=== PATIENT | female | born 1980 | race African-American/Black ===

== ENCOUNTER → 2017-01-08 | Outpatient (CLI) | payer OTHER, MEDICAID | LOC: OD 16:54 | PROVIDERS: ATTEND Student in an Organized Health Care Education/Training Program | DX: O20.0 Threatened abortion (principal) | CPT/HCPCS: 36415; 84702; 86900; 86901 ==

== ENCOUNTER 2017-01-09 05:52 | Emergency (ER) | payer OTHER, MEDICAID ==
--- NOTE | 2017-01-09 07:22 | ER Document Report ---
ED GI/ - General Chief Complaint: Vag Bleeding, +preg <12wks Stated Complaint: ABDOMINAL PAIN/VAGINAL BLEEDING Time Seen by Provider: 01/09/17 07:11 Notes: Patient is a 6 week female who presents to the ED complaining of constipation, abdominal distention, generalized abdominal pain and new onset vaginal bleeding. She states over the past 10 days she has been suffering from constipation requiring laxatives such as mag citrate, OTC enemas and colace. She states she has had a BM every 2-3 days while using medications. Her last BM was sunday. Pain is described as cramping abdominal pain with generalized location, no radiation. Admits to nausea and flatus but denies belching, emesis. Patient states she followed up with OBGYN yesterday who evaluated her. LMP: 11/10. Initiated colace, sent b-hcg, urine and performed a TVUS which confirmed IUP. Patient states her vaginal bleeding started this morning, light with one clot the size of a dime. Denies any urinary symptoms, admits to pelvic pressure localized over her pubic symphis. Denies vaginal discharge, itching, pain. PMH: NIDDM, sciatica PSH: denies SH: former smoker, denies etoh or IVDU PCP: Dr. Edwards with [facility] OBGYN: MARK TRAVEL OUTSIDE OF THE [place] IN LAST 30 DAYS: No - Related Data Allergies/Adverse Reactions: No Known Allergies Allergy (Verified 01/09/17 07:57) Home Medications: Current Home Medications Metformin HCl [Metformin HCl] 1 tab PO BID 01/09/17 [History] Vit/Iron Fumarate/FA [ Tablet] 1 each PO DAILY 01/09/17 [ History] Past Medical History - Social History Smoking Status: Former Smoker Family History: Reviewed & Not Pertinent Patient has suicidal ideation: No Patient has homicidal ideation: No - Past Medical History Cardiac Medical History: Reports: Hx Hypertension Renal/ Medical History: Denies: Hx Peritoneal Dialysis - Immunizations Hx Diphtheria, Pertussis, Tetanus Vaccination: Yes Review of Systems - Review of Systems Constitutional: No symptoms reported Cardiovascular: No symptoms reported Respiratory: No symptoms reported Gastrointestinal: See HPI Genitourinary: No symptoms reported Female Genitourinary: See HPI -: Yes All other systems reviewed and negative Physical Exam - Vital signs Vitals: Temp Pulse Resp BP Pulse Ox 98.5 F 89 20 152/93 H 95 01/09/17 05:54 01/09/17 05:54 01/09/17 05:54 01/09/17 05:54 01/09/17 05:54 - Notes Notes: PHYSICAL EXAM GENERAL: Alert, interacts well. HEAD: Normocephalic, atraumatic. EYES: Pupils equal, round, and reactive to light. Extraocular movements intact. ENT: Oral mucosa moist, tongue midline. NECK: Full range of motion. Supple. Trachea midline. LUNGS: Clear to auscultation bilaterally, no wheezes, rales, or rhonchi. No respiratory distress. HEART: Regular rate and rhythm. No murmurs, gallops, or rubs. ABDOMEN: distended and moderately tender. No guarding, rebound, or rigidity.. Bowel sounds present in all 4 quadrants. EXTREMITIES: Moves all 4 extremities spontaneously. No edema, radial and dorsalis pedis pulses 2/4 bilaterally. No cyanosis. NEUROLOGICAL: Alert and oriented x4. Normal speech. PSYCH: Normal affect, normal mood. SKIN: Warm, dry, normal turgor. No rashes or lesions noted. Course - Re-evaluation Re-evalutation: 01/09/17 07:47 Patient is a 36 female who is hemodynamic stable, no acute distress and afebrile. Basic blood work to evaluate beta hCG and follow-up with results from [facility]. Otherwise we will treat patient for constipation.. 01/09/17 20:50 Result showed no evidence of leukocytosis or anemia. Patient is trending down. Review of transvaginal ultrasound done at [facility] did not reveal any evidence of cardiac motion. 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 Smith. She states that she had told the patient yesterday that she is likely undergoing a threatened miscarriage and that she will need to follow-up with her for possible D&C or medication. Reviewing this with the patient, she states she was not aware it was not severe. Discussed with her medications for constipation and plan to follow-up with repeat blood work on with [facility]. Patient agrees with plan. - Vital Signs Vital signs: Temp Pulse Resp BP Pulse Ox 98.5 F 77 17 130/79 H 96 01/09/17 05:54 01/09/17 09:55 01/09/17 09:55 01/09/17 09:55 01/09/17 09:55 - Laboratory Result Diagrams: 01/09/17 07:50 01/09/17 07:30 Laboratory results interpreted by me: 01/09/17 01/09/17 01/09/17 07:30 07:50 07:50 RBC 3.71 L Hgb 10.4 L Hct 31.8 L Monocytes % 15.4 H Absolute Monocytes 1.5 H Sodium 136.7 L Direct Bilirubin 0.6 H AST 48 H Beta HCG, Quant 7710.70 H Urine Protein Urine Blood Urine Urobilinogen Ur Leukocyte Esterase 01/09/17 08:53 RBC Hgb Hct Monocytes % Absolute Monocytes Sodium Direct Bilirubin AST Beta HCG, Quant Urine Protein 30 H Urine Blood LARGE H Urine Urobilinogen 4.0 H Ur Leukocyte Esterase TRACE H Discharge - Discharge Clinical Impression: Threatened miscarriage, Constipation, UTI (urinary tract infection) Condition: Good Disposition: HOME, SELF-CARE Instructions: Threatened Miscarriage ([facility]), Repeat Blood Test ([facility]), Acetaminophen, Cephalexin ([facility]), Urinary Tract Infection ([facility]) Additional Instructions: Take the stool softener Docusate/colace two times a day Take prescriptions as directed Follow up with A on for repeat blood work Prescriptions: Cephalexin Monohydrate [Keflex 500 mg Capsule] 500 mg PO BID 7 Days Glycerin 1 each RC DAILY #15 supp.rect Forms: Elevated Blood Pressure, Parent Work Note, Return to Work Referrals: JERE DARDEN FNP [Primary Care Provider] - Follow up as needed TONIA SMITH MD [ACTIVE STAFF] - Follow up as needed
[2017-01-09] MEDS ORDERED: GLYCERIN (PEDIATRIC) SUPP.RECT PR ONE (07:46)
[2017-01-09] MEDS ORDERED: MAGNESIUM CITRATE 296 ML BOTTLE PO ONE (07:46)
[2017-01-09] MEDS ORDERED: ACETAMINOPHEN 325 MG TABLET PO ONE (07:50)
[2017-01-09 07:58] LABS: ABSOLUTE BASOPHILS # (AUTO) 0.1 10^3/uL (0.0-0.2); ABSOLUTE EOSINOPHILS # (AUTO) 0.1 10^3/uL (0.0-0.6); ABSOLUTE LYMPHOCYTES (AUTO) 1.6 10^3/uL (0.5-4.7); ABSOLUTE MONOCYTES (AUTO) 1.5 10^3/uL (0.1-1.4); ABSOLUTE NEUT (AUTO) 6.2 10^3/uL (1.7-8.2); EOSINOPHILS % (AUTO) 1.2 % (0-6); HEMATOCRIT 31.8 % (36.0-47.0); HEMOGLOBIN 10.4 g/dL (12.0-15.5); HGB HCT DIFFERENCE -0.6; LYMPHOCYTES % (AUTO) 16.6 % (13-45); MEAN CORPUSCULAR HGB CONC 32.6 g/dL (32.0-36.0); MEAN CORPUSCULAR VOLUME 86 fl (80-97); MONOCYTES % (AUTO) 15.4 % (3-13); RED BLOOD COUNT 3.71 10^6/uL (3.72-5.28); RED CELL DISTRIBUTION WIDTH 13.4 % (11.5-14.0); SEGMENTED NEUTROPHILS % (AUTO) 65.8 % (42-78); WHITE BLOOD COUNT 9.5 10^3/uL (4.0-10.5)
[2017-01-09 08:43] LABS: ALANINE AMINOTRANSFERASE 48 U/L (9-52); ALBUMIN 3.6 g/dL (3.5-5.0); ALKALINE PHOSPHATASE 126 U/L (38-126); ANION GAP 13 (5-19); ASPARTATE AMINO TRANSFERASE 48 U/L (14-36); BILIRUBIN,DIRECT 0.6 mg/dL (0.0-0.4); BLOOD UREA NITROGEN 11 mg/dL (7-20); CARBON DIOXIDE 24 mmol/L (22-30); CHLORIDE 100 mmol/L (98-107); CREATININE RESULT 0.77 mg/dL (0.52-1.25); GLUCOSE 101 mg/dL (75-110); POTASSIUM 4.1 mmol/L (3.6-5.0); SODIUM 136.7 mmol/L (137-145)
[2017-01-09 09:11] LABS: APPEARANCE,URINE CLOUDY; BILIRUBIN,URINE NEGATIVE (NEGATIVE); GLUCOSE, URINE NEGATIVE (NEGATIVE); KETONES,URINE NEGATIVE (NEGATIVE); LEUKOCYTE ESTERASE,URINE TRACE (NEGATIVE); NITRITE,URINE NEGATIVE (NEGATIVE); PROTEIN,URINE 30 mg/dL (NEGATIVE); URINE SPECIFIC GRAVITY 1.023
[2017-01-09 09:57] VITALS: BP 130/79
== END 2017-01-09 09:55 | disposition home or self-care (01) ==
LOC: ER 05:52
DX: O20.0 Threatened abortion (principal); O99.611 Diseases of the digestive system complicating pregnancy, first trimester; K59.00 Constipation, unspecified; O23.41 Unspecified infection of urinary tract in pregnancy, first trimester; O16.1 Unspecified maternal hypertension, first trimester; O26.891 Other specified pregnancy related conditions, first trimester; R10.84 Generalized abdominal pain; R11.0 Nausea; Z87.891 Personal history of nicotine dependence
CPT/HCPCS: 99284; 36415; 84702; 85025; 80053; 81001; J3490 ×2

== ENCOUNTER → 2017-09-25 | Outpatient (CLI) | payer OTHER, MEDICAID ==
--- NOTE | 2017-09-25 18:07 | RADIOLOGY REPORT (SQ) ---
EXAM DESCRIPTION: U/S NON-OB PELVIS W/O DOP COMPLETED DATE/TIME: 09/25/2017 5:13 pm REASON FOR STUDY: FIBROIDS/HX OF LOSS D25.9 LEIOMYOMA OF UTERUS, UNSPECIFIED LMP 8 COMPARISON: None. TECHNIQUE: Dynamic and static grayscale images acquired of the pelvis via transabdominal approach an d recorded on PACS. Additional selected color Doppler and spectral images recorded. LIMITATIONS: None. FINDINGS: UTERUS: 13.3 x 9.2 x 6.9 cm. In homogeneous myometrium with multiple fibroids identified. There is a pedunculated 9.4 x 9.1 x 10.9 cm fibroid. There is a 6 x 4.7 x 5.7 cm fibroid. There i s a 1.6 x 2 x 1.9 cm fibroid. ENDOMETRIAL STRIPE: Not well seen. CERVIX: 2.7 cm. No nabothian cysts. RIGHT OVARY: Ovary not visualized. RIGHT OVARY DOPPLER: Normal arterial vascular flow without evidence for torsion. LEFT OVARY: Ovary not visualized. LEFT OVARY DOPPLER: Normal arterial vascular flow without evidence for torsion. FREE FLUID: None noted. OTHER: No other significant finding. MEASUREMENTS: UTERUS: 13.3 x 9.2 x 6.9 cm. ENDOMETRIAL STRIPE: Not seen. RIGHT OVARY: Not seen. LEFT OVARY: Not seen. IMPRESSION: Multiple uterine fibroids. TECHNICAL DOCUMENTATION: JOB ID: [id number] [employer]- All Rights Reserved Reading location - IP/workstation name: [email or web address]
== END ==
LOC: RAD 15:55
PROVIDERS: ATTEND Nurse Practitioner Primary Care
DX: D25.9 Leiomyoma of uterus, unspecified (principal)
CPT/HCPCS: 76856